=== PATIENT | male | born 1970 | race African-American/Black ===

== ENCOUNTER 2016-08-29 14:15 | Emergency (ER) | payer MEDICAID ==
[~2016-08-29] VITALS: Ht 188 cm; Wt 83.9 kg
[2016-08-29 14:53] VITALS: BP 121/95
== END 2016-08-29 17:59 | disposition home or self-care (01) ==
LOC: ER 14:20
DX: S81.812A Laceration without foreign body, left lower leg, initial encounter (principal); L08.89 Other specified local infections of the skin and subcutaneous tissue; F17.210 Nicotine dependence, cigarettes, uncomplicated; F14.10 Cocaine abuse, uncomplicated; W26.0XXA Contact with knife, initial encounter; Y93.89 Activity, other specified; Y99.8 Other external cause status; Y92.89 Other specified places as the place of occurrence of the external cause

== ENCOUNTER 2017-05-24 00:50 | Emergency (ER) | payer MEDICAID ==
[~2017-05-24] VITALS: Ht 188 cm; Wt 83.9 kg
[2017-05-24 00:58] VITALS: BP 142/99
== END 2017-05-24 05:33 | disposition left against medical advice (07) ==
LOC: ER 00:50
DX: S61.512A Laceration without foreign body of left wrist, initial encounter (principal); F17.210 Nicotine dependence, cigarettes, uncomplicated; W25.XXXA Contact with sharp glass, initial encounter; Y93.89 Activity, other specified; Y99.8 Other external cause status; Y92.59 Other trade areas as the place of occurrence of the external cause
CPT/HCPCS: 73110

== ENCOUNTER 2017-05-24 11:41 | Emergency (ER) | payer MEDICAID ==
[~2017-05-24] VITALS: Ht 188 cm; Wt 83.9 kg
[2017-05-24 12:23] VITALS: BP 109/80
[2017-05-24] MEDS ORDERED: cefTRIAXone SOD 1,000 MG VL IM ONE (12:45)
[2017-05-24] MEDS ORDERED: TETANUS-DIPTH-ACEL PERTUSSIS 0.5ML SYRG IM ONE (12:45)
[2017-05-24] MEDS ORDERED: BACITRACIN TOP OINT 1 UD PKG TOP ONE (13:00)
[2017-05-24] MEDS ORDERED: LIDOCAINE 1% HCL (LOCAL ANESTH.) INJ 20ML MDV IJ ONE (13:00)
== END 2017-05-24 13:46 | disposition home or self-care (01) ==
LOC: ER 11:41
DX: S61.512A Laceration without foreign body of left wrist, initial encounter (principal); F17.210 Nicotine dependence, cigarettes, uncomplicated; Z23 Encounter for immunization; W19.XXXA Unspecified fall, initial encounter; Y93.89 Activity, other specified; Y99.8 Other external cause status; Y92.59 Other trade areas as the place of occurrence of the external cause
CPT/HCPCS: 12002; 90471; 90715; 96372; 99284; J0696; J2001

== ENCOUNTER 2018-06-16 19:51 | Emergency (ER) | payer MEDICAID ==
[~2018-06-16] VITALS: Ht 188 cm; Wt 88.5 kg
[2018-06-16 20:03] VITALS: BP 141/82
== END 2018-06-16 22:46 | disposition left against medical advice (07) ==
LOC: ER 20:14
DX: S60.512D Abrasion of left hand, subsequent encounter (principal); X58.XXXD Exposure to other specified factors, subsequent encounter; Z53.21 Procedure and treatment not carried out due to patient leaving prior to being seen by health care provider

== ENCOUNTER 2018-06-17 03:16 | Emergency (ER) | payer MEDICAID ==
[~2018-06-17] VITALS: Ht 188 cm; Wt 88.5 kg
[2018-06-17 07:36] VITALS: BP 138/87
== END 2018-06-17 10:43 | disposition home or self-care (01) ==
LOC: ER 03:17
DX: S00.81XA Abrasion of other part of head, initial encounter (principal); S60.512A Abrasion of left hand, initial encounter; F17.210 Nicotine dependence, cigarettes, uncomplicated; F14.10 Cocaine abuse, uncomplicated; W22.8XXA Striking against or struck by other objects, initial encounter; Y93.89 Activity, other specified; Y92.89 Other specified places as the place of occurrence of the external cause; Y99.8 Other external cause status

== ENCOUNTER 2018-09-13 12:06 | Emergency (ER) | payer MEDICAID ==
[~2018-09-13] VITALS: Ht 188 cm; Wt 86.2 kg
[2018-09-13 13:26] LABS: Basophils # (auto) 0 uL; Basophils % (auto) 0.5 % (0.0-2.0); Eosinophils # (auto) 0.1 uL; Eosinophils % (auto) 1.7 % (0.0-7.0); Hematocrit 42.4 % (41.0-53.0); Hemoglobin 14.1 g/dL (13.5-17.5); Lymphocytes # (auto) 1.4 uL; Lymphocytes % (auto) 25.8 % (10.0-50.0); Mean Corpuscular Hemoglobin 29.4 pg (28.0-32.0); Mean Corpuscular Hgb Conc. 33.3 g/dL (32.0-36.0); Mean Corpuscular Volume 88.3 fL (80.0-100.0); Monocytes # (auto) 0.5 uL; Monocytes % (auto) 10.3 % (0.0-12.0); Neutrophils # (auto) 3.3 uL; Neutrophils % (auto) 61.7 % (37.0-80.0); Platelet Count (auto) 241 10^3/uL (140-450); Red Cell Distribution Width 13.7 % (11.8-14.3); White Blood Cell 5.3 10^3/uL (4.4-10.8)
[2018-09-13 13:44] LABS: Potassium 4.3 mmol/L (3.5-5.1)
[2018-09-13 13:53] LABS: Albumin 3.3 g/dL (3.4-5.0); BUN/Creatinine Ratio 11.9; Bilirubin, Total 0.4 mg/dL (0.2-1.0); Calcium 8.6 mg/dL (8.5-10.1); Total Protein 8.1 g/dL (6.4-8.2)
[2018-09-13] MEDS ORDERED: cefTRIAXone SOD 1,000 MG VL IM ONE (14:45)
[2018-09-13] MEDS ORDERED: LIDOCAINE 2% (LOCAL ANESTH.) PF 5ml SDV ONE (15:02)
[2018-09-13 16:37] VITALS: BP 125/78
== END 2018-09-13 16:38 | disposition home or self-care (01) ==
LOC: ER 12:13
DX: S80.12XA Contusion of left lower leg, initial encounter (principal); F17.210 Nicotine dependence, cigarettes, uncomplicated; F14.90 Cocaine use, unspecified, uncomplicated; W22.8XXA Striking against or struck by other objects, initial encounter; Y93.89 Activity, other specified; Y99.8 Other external cause status; Y92.89 Other specified places as the place of occurrence of the external cause
CPT/HCPCS: 36415; 73590; 80053; 85025; 96372; 99284; J0696; J2001

== ENCOUNTER 2019-11-13 09:48 | Emergency (ER) | payer MEDICAID ==
[~2019-11-13] VITALS: Ht 188 cm; Wt 86.2 kg
[2019-11-13 09:58] VITALS: BP 149/96
[2019-11-13] MEDS ORDERED: ACETAMINOPHEN/CODEINE#3 (300/30mg) TAB PO ONE (10:45)
== END 2019-11-13 11:00 | disposition home or self-care (01) ==
LOC: ER 09:48
DX: K08.89 Other specified disorders of teeth and supporting structures (principal); F17.210 Nicotine dependence, cigarettes, uncomplicated

== ENCOUNTER 2022-11-18 18:14 | Emergency (ER) | payer MEDICAID ==
[~2022-11-18] VITALS: Ht 188 cm; Wt 90.1 kg
[2022-11-18 18:26] VITALS: BP 156/101
[2022-11-18] MEDS ORDERED: OXYCODONE W/ ACETAMINOPHEN 5/325MG TABLET PO ONE (19:30)
[2022-11-18] MEDS ORDERED: LIDOCAINE 1% HCL (LOCAL ANESTH.) INJ 20ML MDV ID ONE (19:30)
[2022-11-18] MEDS ORDERED: CEPH-322 PO (22:47)
[2022-11-18] MEDS ORDERED: ONDA-144 PO (22:47)
[2022-11-18] MEDS ORDERED: PERCOT PO (22:47)
== END 2022-11-19 06:14 | disposition home or self-care (01) ==
LOC: ER 18:14
DX: S01.01XA Laceration without foreign body of scalp, initial encounter (principal); F17.210 Nicotine dependence, cigarettes, uncomplicated; W45.8XXA Other foreign body or object entering through skin, initial encounter; Y93.89 Activity, other specified; Y92.89 Other specified places as the place of occurrence of the external cause; Y99.8 Other external cause status
CPT/HCPCS: 12002; 70450; 99284; J2001